=== PATIENT | female | born 1985 | race Caucasian/White ===

== ENCOUNTER 2019-07-14 07:13 | Emergency (ER) | payer OTHER ==
[~2019-07-14] VITALS: Ht 160 cm; Wt 66.7 kg
[2019-07-14 07:25] VITALS: Ht 160 cm; Wt 66.7 kg
[2019-07-14 08:16] LABS: BASOPHIL % 0.3 % (0-2); RED CELL DISTRIBUTION WIDTH 12.8 % (11.5-14.5)
[2019-07-14 08:25] LABS: PLATELET COUNT 435 x10^3mcL (130-400)
[2019-07-14 08:32] LABS: CALCIUM 9.7 mg/dL (8.5-10.1); CARBON DIOXIDE 25.7 mmol/L (21-32); CHLORIDE SERUM 100 mmol/L (98-107); CREATININE SERUM 0.7 mg/dL (0.6-1.0); GFR1 > 60 mL/min; GLUCOSE SERUM 80 mg/dL (74-106); POTASSIUM SERUM 4.1 mmol/L (3.5-5.1); SODIUM SERUM 139 mmol/L (136-145)
[2019-07-14 08:36] LABS: ALBUMIN 4.5 g/dL (3.4-5.0); ALKALINE PHOSPHATASE 63 U/L (46-116); ALT/SGPT 23 U/L (14-59); AST/SGOT 27 U/L (15-37); BILIRUBIN TOTAL 2.1 mg/dL (0.20-1.00); TOTAL PROTEIN, SERUM 7.9 g/dL (6.4-8.2)
[2019-07-14 08:38] LABS: AMPHETAMINE QUAL UR NONE DETECTED (See below)
[2019-07-14 09:33] VITALS: BP 118/68
== END 2019-07-14 09:34 | disposition home or self-care (01) ==
LOC: ED 07:13
PROVIDERS: Emergency Medicine
DX: R42 Dizziness and giddiness (principal); H92.01 Otalgia, right ear; R11.10 Vomiting, unspecified; F12.90 Cannabis use, unspecified, uncomplicated; Z90.49 Acquired absence of other specified parts of digestive tract; Z90.89 Acquired absence of other organs
CPT/HCPCS: J2060; J2405; J7030; J8597